=== PATIENT | male | born 1930 | race Caucasian/White ===

== ENCOUNTER 2018-03-13 10:46 | Emergency (ER) | payer OTHER, MEDICARE ==
[~2018-03-13] VITALS: Ht 175.3 cm; Wt 61.2 kg
[2018-03-13 10:46] VITALS: BP_SYST 149
[~2018-03-13 10:46] MED LIST: ASCO-339 PO; ASPI-1153 PO; BACL20TA PO; CAR1 PO; DILT120C89 PO
[2018-03-13] MEDS: ONDANSETRON HCL 4 MG/2 ML VIAL IVP ONE (11:35)
[2018-03-13] MEDS: NACL 0.9% 1,000 ML IV ONE (11:42)
[2018-03-13 12:21] LABS: HEMATOCRIT 38.3 % (36-54); HEMOGLOBIN 12.9 g/dL (14.0-18.0); MEAN CORPUSCULAR HEMOGLOBIN 34 pg (27-31); MEAN CORPUSCULAR HGB CONC 34 % (32-36); MEAN CORPUSCULAR VOLUME 99 fL (79.0-98.0); PLATELET COUNT (AUTO) 194 K/uL (130-430); RED BLOOD CELL COUNT(AUTO) 3.86 MIL/uL (4.2-6.2); RED CELL DISTRIBUTION WIDTH 12.6 % (9.0-15.0); WHITE BLOOD COUNT (AUTO) 11.5 K/uL (4.8-10.8)
[2018-03-13 12:37] LABS: ANION GAP 8 (5-15); CALCIUM 8.4 mg/dL (8.4-11.0); CHLORIDE 104 mmol/L (98-107); CREATININE 1.03 mg/dL (0.55-1.30); GLUCOSE 135 mg/dL (70-99); POTASSIUM 4.1 mmol/L (3.5-5.1); SODIUM SERUM 138 mmol/L (136-145); UREA NITROGEN, BLOOD 17 mg/dL (8-21)
[2018-03-13 12:42] LABS: ALANINE AMINOTRANSFERASE 19 U/L (12-78); ALBUMIN 2.9 g/dL (3.4-4.8); ASPARTATE AMINOTRANSFERASE 29 U/L (10-37); LIPASE 136 U/L (73-393); TOTAL BILIRUBIN 0.3 mg/dL (0.0-1.0)
[2018-03-13 12:43] LABS: BASOPHILS % (MANUAL) 0 % (0-2); EOSINOPHILS % (MANUAL) 2 % (0-7); LYMPHOCYTES % (MANUAL) 3 % (20-46); MONOCYTES % (MANUAL) 4 % (0-11)
[2018-03-13 13:33] LABS: BILIRUBIN,URINE NEGATIVE (NEGATIVE); CLARITY/URINE SL HAZY (CLEAR); COLOR,URINE YELLOW (YELLOW); GLUCOSE,URINE NEGATIVE (NEGATIVE); KETONES,URINE NEGATIVE (NEGATIVE); LEUKOCYTE ESTERASE ,URINE 3+ (NEGATIVE); NITRITE, URINE POSITIVE (NEGATIVE); PROTEIN URINE NEGATIVE (NEGATIVE); UROBILINOGEN,URINE 0.2 (0.2-1.0)
[2018-03-13] MEDS: cefTRIAXone 1 GM IVPB PREMIX 50 ML IV ONE (13:40)
[2018-03-13 13:43] LABS: BLOOD, URINE TRACE (NEGATIVE)
[2018-03-13 13:51] LABS: BACTERIA,URINE FEW /HPF (None Seen); MUCUS,URINE None Seen /LPF (None Seen); RBC,URINE 0-3 /HPF (0-3)
[2018-03-13 14:29] VITALS: BP_SYST 118
== END 2018-03-13 14:29 | disposition home or self-care (01) ==
LOC: SED 10:56
DX: N39.0 Urinary tract infection, site not specified (principal); R53.1 Weakness; Z90.49 Acquired absence of other specified parts of digestive tract; Z95.1 Presence of aortocoronary bypass graft; Z79.82 Long term (current) use of aspirin; Z79.899 Other long term (current) drug therapy
CPT/HCPCS: 36415; 71045; 80053; 81000; 82550; 83690; 83880; 84484; 85007; 85027; 87086; 87186; 93005; 96361; 96365; 96375; 99284; J0696; J2405; J7030

== ENCOUNTER 2018-11-10 09:21 | Inpatient (IN) | payer OTHER, MEDICAID ==
[~2018-11-10] VITALS: Ht 175.3 cm; Wt 51.3 kg
[2018-11-10 09:30] VITALS: BP_SYST 141
[2018-11-10 10:04] LABS: BASOPHILS # (AUTO) 0.1 K/uL (0.0-0.2); EOSINOPHILS # (AUTO) 0.3 K/uL (0.0-0.4); EOSINOPHILS % (AUTO) 4.3 % (0.0-4.0); HEMATOCRIT 38.6 % (36-54); HEMOGLOBIN 13.3 g/dL (14.0-18.0); LYMPHOCYTES # (AUTO) 1.5 K/uL (1.0-5.5); LYMPHOCYTES % (AUTO) 23.2 % (20.5-51.5); MEAN CORPUSCULAR HEMOGLOBIN 35 pg (27-31); MEAN CORPUSCULAR HGB CONC 35 % (32-36); MEAN CORPUSCULAR VOLUME 100 fL (79.0-98.0); MONOCYTES # (AUTO) 0.6 K/uL (0.0-1.0); MONOCYTES % (AUTO) 9.2 % (1.7-9.3); NEUTROPHILS # (AUTO) 4.1 K/uL (1.8-7.7); NEUTROPHILS % (AUTO) 62.3 % (40.0-70.0); PLATELET COUNT (AUTO) 212 K/uL (130-430); RED BLOOD CELL COUNT(AUTO) 3.86 MIL/uL (4.2-6.2); RED CELL DISTRIBUTION WIDTH 12.7 % (9.0-15.0); WHITE BLOOD COUNT (AUTO) 6.6 K/uL (4.8-10.8)
[2018-11-10 10:15] LABS: ANION GAP 6 (5-15); CHLORIDE 90 mmol/L (98-107); CREATININE 0.85 mg/dL (0.55-1.30); GLUCOSE 202 mg/dL (70-99); SODIUM SERUM 126 mmol/L (136-145); UREA NITROGEN, BLOOD 18 mg/dL (8-21)
[2018-11-10 10:16] LABS: INR 0.9 (0.80-1.20); PROTHROMBIN TIME 9.4 SECS (9.5-12.5)
[2018-11-10 10:48] LABS: ALANINE AMINOTRANSFERASE 19 U/L (12-78); ALBUMIN 3.1 g/dL (3.4-4.8); ASPARTATE AMINOTRANSFERASE 38 U/L (10-37); FREE T4 (FREE THYROXINE) 1.1 ng/dL (0.6-1.6); TOTAL BILIRUBIN 0.6 mg/dL (0.0-1.0)
[2018-11-10 10:49] LABS: ALCOHOL, BLOOD < 3 mg/dL (<10); POTASSIUM 2.6 mmol/L (3.5-5.1)
[2018-11-10] MEDS ORDERED: POTASSIUM CHLORIDE 40 MEQ in NS 250 ML IV ONE (11:00)
[2018-11-10] MEDS ORDERED: POTASSIUM CHLORIDE 20 MEQ/PKT PACKET PO ONE (11:00)
[2018-11-10] MEDS ORDERED: HCT25 PO (11:16)
[2018-11-10] MEDS ORDERED: BACL20 PO (11:18)
[2018-11-10 11:50] LABS: BILIRUBIN,URINE NEGATIVE (NEGATIVE); BLOOD, URINE 3+ (NEGATIVE); CLARITY/URINE CLEAR (CLEAR); COLOR,URINE YELLOW (YELLOW); GLUCOSE,URINE 1+ (NEGATIVE); KETONES,URINE NEGATIVE (NEGATIVE); LEUKOCYTE ESTERASE ,URINE NEGATIVE (NEGATIVE); NITRITE, URINE POSITIVE (NEGATIVE); PROTEIN URINE 3+ (NEGATIVE); UROBILINOGEN,URINE 0.2 (0.2-1.0)
[2018-11-10 11:58] LABS: BACTERIA,URINE MODERATE /HPF (None Seen); RBC,URINE >100 /HPF (0-3)
[2018-11-10 12:03] LABS: BARBITURATE, URINE NEGATIVE (NEG <=200); BENZODIAZEPINE, URINE NEGATIVE (NEG <=150); CANNABINOID, URINE NEGATIVE (NEG <=50); COCAINE, URINE NEGATIVE (NEG <=150); METHAMPHETAMINES SCREEN,URINE NEGATIVE (NEG <=500); OPIATE, URINE NEGATIVE (NEG <=100); PHENCYCLIDINE SCREEN,URINE NEGATIVE (NEG <=25); UR TRICYCLIC ANTIDEPRESSANTS NEGATIVE (NEG <=300); URINE AMPHETAMINE NEGATIVE (NEG <=500); URINE METHADONE NEGATIVE (NEG <=200); URINE OXYCODONE SCREEN NEGATIVE (NEG <=100); URINE PROPOXYPHENE SCREEN NEGATIVE (NEG <=300)
[2018-11-10 12:17] VITALS: BP_SYST 128
[2018-11-10 15:13] VITALS: BP_SYST 97
[2018-11-10 16:00] VITALS: BP_SYST 130
[2018-11-10] MEDS ORDERED: cefTRIAXone 1 GM IVPB PREMIX 50 ML IV ONE (19:49)
[2018-11-10 20:00] VITALS: BP_SYST 105
[2018-11-10] MEDS ORDERED: KCL 20 mEq in 100 mL (PREMIX) 100 ML IV ONE (20:47)
[2018-11-10] MEDS: LUBIPROSTONE 8 MCG CAPSULE PO SCH (21:00)
[2018-11-10] MEDS: cefTRIAXone 1 GM in D5W 50 ML IV SCH (21:02)
[2018-11-10] MEDS: KCL 20 mEq in D5NS 1000 mL 1,000 ML IV SCH (21:05)
[2018-11-10] MEDS: SENNOSIDES 8.6 MG TABLET PO SCH (21:55)
[2018-11-10] MEDS: BACLOFEN 10 MG TABLET PO SCH (21:55)
[2018-11-10] MEDS: ENOXAPARIN SODIUM 40 MG/0.4 ML SYRINGE SUBCUT SCH (21:57)
[2018-11-11 00:20] VITALS: BP_SYST 110
[2018-11-11 06:37] LABS: BASOPHILS % (AUTO) 0.3 % (0.0-2.0); EOSINOPHILS % (AUTO) 0.2 % (0.0-4.0); HEMATOCRIT 31.9 % (36-54); LYMPHOCYTES # (AUTO) 0.8 K/uL (1.0-5.5); LYMPHOCYTES % (AUTO) 5.1 % (20.5-51.5); MEAN CORPUSCULAR HEMOGLOBIN 34 pg (27-31); MEAN CORPUSCULAR HGB CONC 34 % (32-36); MEAN CORPUSCULAR VOLUME 100 fL (79.0-98.0); MONOCYTES # (AUTO) 0.9 K/uL (0.0-1.0); MONOCYTES % (AUTO) 5.7 % (1.7-9.3); NEUTROPHILS # (AUTO) 14.4 K/uL (1.8-7.7); NEUTROPHILS % (AUTO) 88.7 % (40.0-70.0); PLATELET COUNT (AUTO) 177 K/uL (130-430); RED CELL DISTRIBUTION WIDTH 12.8 % (9.0-15.0)
[2018-11-11 06:57] LABS: ANION GAP 5 (5-15); CALCIUM 8.6 mg/dL (8.4-11.0); CHLORIDE 99 mmol/L (98-107); GLUCOSE 113 mg/dL (70-99); POTASSIUM 4.2 mmol/L (3.5-5.1); SODIUM SERUM 134 mmol/L (136-145); UREA NITROGEN, BLOOD 19 mg/dL (8-21)
[2018-11-11 06:59] LABS: WHITE BLOOD COUNT (AUTO) 16.3 K/uL (4.8-10.8)
[2018-11-11] MEDS: DILTIAZEM HCL 120 MG CAP.SR.24H PO SCH (08:04)
[2018-11-11] MEDS: BACLOFEN 10 MG TABLET PO SCH ×2 (08:04→20:08)
[2018-11-11] MEDS: LUBIPROSTONE 8 MCG CAPSULE PO SCH ×2 (08:05→20:08)
[2018-11-11 08:09] VITALS: BP_SYST 127
[2018-11-11] MEDS ORDERED: DOXAZOSIN MESYLATE 2 MG TABLET PO SCH (09:00)
[2018-11-11] MEDS: KCL 20 mEq in D5NS 1000 mL 1,000 ML IV SCH ×2 (10:11→21:54)
[2018-11-11 12:30] VITALS: BP_SYST 116
[2018-11-11 16:20] VITALS: BP_SYST 111
[2018-11-11] MEDS: cefTRIAXone 1 GM in D5W 50 ML IV SCH (17:37)
[2018-11-11 19:33] VITALS: BP_SYST 138
[2018-11-11] MEDS: SENNOSIDES 8.6 MG TABLET PO SCH ×2 (20:07→21:00)
[2018-11-11] MEDS: ENOXAPARIN SODIUM 40 MG/0.4 ML SYRINGE SUBCUT SCH (20:12)
[2018-11-12 00:59] VITALS: BP_SYST 159
[2018-11-12 06:35] LABS: ANION GAP 7 (5-15); CALCIUM 7.8 mg/dL (8.4-11.0); CHLORIDE 102 mmol/L (98-107); CREATININE 0.85 mg/dL (0.55-1.30); GLUCOSE 94 mg/dL (70-99); POTASSIUM 4.2 mmol/L (3.5-5.1); SODIUM SERUM 135 mmol/L (136-145); UREA NITROGEN, BLOOD 20 mg/dL (8-21)
[2018-11-12 06:42] LABS: BASOPHILS % (AUTO) 0.5 % (0.0-2.0); EOSINOPHILS # (AUTO) 0.1 K/uL (0.0-0.4); HEMATOCRIT 28.1 % (36-54); HEMOGLOBIN 9.9 g/dL (14.0-18.0); LYMPHOCYTES % (AUTO) 11.1 % (20.5-51.5); MEAN CORPUSCULAR HEMOGLOBIN 35 pg (27-31); MEAN CORPUSCULAR HGB CONC 35 % (32-36); MEAN CORPUSCULAR VOLUME 100 fL (79.0-98.0); MONOCYTES # (AUTO) 0.8 K/uL (0.0-1.0); MONOCYTES % (AUTO) 9.5 % (1.7-9.3); NEUTROPHILS # (AUTO) 6.7 K/uL (1.8-7.7); NEUTROPHILS % (AUTO) 77.9 % (40.0-70.0); PLATELET COUNT (AUTO) 151 K/uL (130-430); RED BLOOD CELL COUNT(AUTO) 2.81 MIL/uL (4.2-6.2); RED CELL DISTRIBUTION WIDTH 12.9 % (9.0-15.0)
[2018-11-12 08:01] LABS: WHITE BLOOD COUNT (AUTO) 8.6 K/uL (4.8-10.8)
[2018-11-12] MEDS: BACLOFEN 10 MG TABLET PO SCH ×2 (09:04→20:24)
[2018-11-12] MEDS: LUBIPROSTONE 8 MCG CAPSULE PO SCH ×2 (09:04→20:24)
[2018-11-12] MEDS: DILTIAZEM HCL 120 MG CAP.SR.24H PO SCH (09:04)
[2018-11-12] MEDS: KCL 20 mEq in D5NS 1000 mL 1,000 ML IV SCH ×2 (11:45→23:15)
[2018-11-12 12:50] VITALS: BP_SYST 111
[2018-11-12 13:58] VITALS: BP_SYST 141
[2018-11-12 16:48] VITALS: BP_SYST 103
[2018-11-12] MEDS: cefTRIAXone 1 GM in D5W 50 ML IV SCH (17:57)
[2018-11-12 20:00] VITALS: BP_SYST 113
[2018-11-12] MEDS: ENOXAPARIN SODIUM 40 MG/0.4 ML SYRINGE SUBCUT SCH (20:25)
[2018-11-12] MEDS: SENNOSIDES 8.6 MG TABLET PO SCH (20:25)
[2018-11-13 02:11] VITALS: BP_SYST 117
[2018-11-13] MEDS: BACLOFEN 10 MG TABLET PO SCH ×2 (11:25→19:37)
[2018-11-13] MEDS: LUBIPROSTONE 8 MCG CAPSULE PO SCH ×2 (11:26→19:37)
[2018-11-13] MEDS: DILTIAZEM HCL 120 MG CAP.SR.24H PO SCH (11:27)
[2018-11-13 12:55] VITALS: BP_SYST 125
[2018-11-13] MEDS: KCL 20 mEq in D5NS 1000 mL 1,000 ML IV SCH (14:59)
[2018-11-13] MEDS ORDERED: BALSAM PERU/CASTOR OIL 60 GM OINT...G. TP ONE (16:00)
[2018-11-13 16:30] VITALS: BP_SYST 123
[2018-11-13] MEDS: cefTRIAXone 1 GM in D5W 50 ML IV SCH (17:38)
[2018-11-13 19:22] VITALS: BP_SYST 104
[2018-11-13] MEDS: SENNOSIDES 8.6 MG TABLET PO SCH (19:37)
[2018-11-13] MEDS: ENOXAPARIN SODIUM 40 MG/0.4 ML SYRINGE SUBCUT SCH (19:37)
[2018-11-13 20:00] VITALS: BP_SYST 104
[2018-11-14] MEDS ORDERED: BALSAM PERU/CASTOR OIL 60 GM OINT...G. TP SCH (09:00)
== END 2018-11-13 19:53 | disposition home or self-care (01) | DRG 698 ==
LOC: SED 09:21 → STU 11:07 → SMU 11-11 18:45
PROVIDERS: ADMIT Family Medicine; ATTEND Family Medicine
DX: T83.021A Displacement of indwelling urethral catheter, initial encounter (principal); G04.89 Other myelitis; N39.0 Urinary tract infection, site not specified; E87.1 Hypo-osmolality and hyponatremia; G82.20 Paraplegia, unspecified; S37.39XA Other injury of urethra, initial encounter; G95.89 Other specified diseases of spinal cord; Y84.6 Urinary catheterization as the cause of abnormal reaction of the patient, or of later complication, without mention of misadventure at the time of the procedure; M60.9 Myositis, unspecified; I10 Essential (primary) hypertension; K59.09 Other constipation; Z79.899 Other long term (current) drug therapy; E11.9 Type 2 diabetes mellitus without complications; G40.909 Epilepsy, unspecified, not intractable, without status epilepticus; J44.9 Chronic obstructive pulmonary disease, unspecified; K21.9 Gastro-esophageal reflux disease without esophagitis; N36.8 Other specified disorders of urethra; N40.0 Benign prostatic hyperplasia without lower urinary tract symptoms; Y82.8 Other medical devices associated with adverse incidents; R31.0 Gross hematuria; Z85.828 Personal history of other malignant neoplasm of skin; Z79.84 Long term (current) use of oral hypoglycemic drugs; Y92.89 Other specified places as the place of occurrence of the external cause; Y93.89 Activity, other specified; Y99.8 Other external cause status
CPT/HCPCS: 36415; 70450-TC; 71045; 74018; 80048; 80053; 80307; 81000-TC; 82140-TC; 82550-TC; 83605; 83735-TC; 83880; 84439; 84484; 85025; 85610-TC; 87040-TC; 87086; 96374; 99285; C1769; G0378; G0482; J0696; J1650; J3480; J7042; J7050; J7060

== ENCOUNTER 2018-12-03 08:18 | Outpatient (CLI) | payer OTHER, MEDICAID ==
[~2018-12-03 08:18] MED LIST changes: -ASCO-339 PO; -ASPI-1153 PO; +BACL20 PO; +HCT25 PO
[2018-12-03] MEDS ORDERED: IOHEXOL 100 ML IV ONE (10:06)
== END 2018-12-03 21:11 | disposition home or self-care (01) ==
LOC: SCT 08:18
PROVIDERS: ATTEND Urology Pediatric Urology
DX: N28.1 Cyst of kidney, acquired (principal); Z90.49 Acquired absence of other specified parts of digestive tract
CPT/HCPCS: 74178; Q9967